=== PATIENT | male | born 1945 | race Caucasian/White ===

== ENCOUNTER 2019-10-29 14:53 | Emergency (ER) | payer MEDICARE ==
[~2019-10-29] VITALS: Ht 167.6 cm; Wt 81.8 kg
[~2019-10-29 14:53] MED LIST: ALFU10TA PO; ASPI81TA52 PO; ATOR40TA PO; OMEP20TA5 PO
--- NOTE | 2019-10-29 15:20 | NUR ---
LEVEL 3 TRAUMA ALERT ACTIVATED.
--- NOTE | 2019-10-29 15:24 | NUR ---
DR. BELTRÁN AT BEDSIDE.
[2019-10-29] MEDS ORDERED: iohexol 300mg/ml 100ml inj. ONE (15:30)
[2019-10-29] MEDS ORDERED: iohexol 300 MG/1 ML 50ml polymer ONE (15:35)
--- NOTE | 2019-10-29 15:40 | NUR ---
PATIENT TO CT.
[2019-10-29 15:44] LABS: BASOPHILS # (AUTO) 0.1 X10'3 (0-0.2); BASOPHILS % (AUTO) 0.4 % (0-1); EOSINOPHILS # (AUTO) 0.1 X10'3 (0-0.9); EOSINOPHILS % (AUTO) 0.3 % (0-6); HEMATOCRIT 41.9 % (42.0-52.0); HEMOGLOBIN 14.5 g/dl (14.0-17.9); LYMPHOCYTES # (AUTO) 1.4 X10'3 (1.1-4.8); LYMPHOCYTES % (AUTO) 10.1 % (21-51); MEAN CORPUSCULAR HGB CONC 34.7 g/dL (33.0-36.5); MEAN CORPUSCULAR VOLUME 92.2 FL (78-98); MONOCYTES # (AUTO) 0.6 X10'3 (0-0.9); NEUTROPHILS # (AUTO) 12.2 X10'3 (1.8-7.7); NEUTROPHILS % (AUTO) 85.2 % (42-75); PLATELET COUNT 321 X10'3 (140-440); RED BLOOD COUNT 4.54 X10'6 (4.70-6.10); RED CELL DISTRIBUTION WIDTH 13.7 % (11.5-14.5); WHITE BLOOD COUNT 14.4 X10'3 (4.5-11.0)
[2019-10-29 15:59] LABS: PARTIAL THROMBOPLASTIN TIME 27 SECONDS (22-32)
[2019-10-29 16:00] LABS: ALANINE AMINOTRANSFERASE 24 U/L (12-78); ALBUMIN/GLOBULIN RATIO 1.3 (1.1-1.5); ALKALINE PHOSPHATASE 84 IU/L (46-116); ANION GAP 10 (8-16); ASPARTATE AMINO TRANSFERASE 20 U/L (10-37); BILIRUBIN,TOTAL 0.6 MG/DL (0.1-1.0); BLOOD UREA NITROGEN 17 MG/DL (7-18); BUN/CREATININE RATIO 13.1 (5.4-32.0); CHLORIDE 104 MMOL/L (99-107); GLUCOSE 115 MG/DL (70-104); POTASSIUM 3.9 MMOL/L (3.5-5.1); SODIUM 141 MMOL/L (135-145); TOTAL CARBON DIOXIDE 27.5 MMOL/L (24-32); TOTAL PROTEIN 7.1 G/DL (6.4-8.2); eGFR 54 ML/MIN
[2019-10-29 16:03] LABS: TROPONIN I < 0.04 NG/ML (0.0-0.05)
--- NOTE | 2019-10-29 16:12 | NUR ---
radiology at bedside.
[2019-10-29 16:27] VITALS: BP 135/84
== END 2019-10-29 17:00 | disposition home or self-care (01) ==
LOC: ER 14:53
DX: S13.4XXA Sprain of ligaments of cervical spine, initial encounter (principal); S50.02XA Contusion of left elbow, initial encounter; E78.00 Pure hypercholesterolemia, unspecified; G89.29 Other chronic pain; Z85.9 Personal history of malignant neoplasm, unspecified; Z98.890 Other specified postprocedural states; Z79.82 Long term (current) use of aspirin; Z79.899 Other long term (current) drug therapy; V89.2XXA Person injured in unspecified motor-vehicle accident, traffic, initial encounter; Y93.89 Activity, other specified; Y92.89 Other specified places as the place of occurrence of the external cause; Y99.8 Other external cause status
CPT/HCPCS: 36415; 70450; 70482; 71260; 72125; 73070; 73590; 74177; 80053; 84484; 85025; 85610; 85730; 93005; 99285; Q9967

== ENCOUNTER 2024-05-24 09:25 | Day surgery (SDC) | payer MEDICARE ==
[~2024-05-24] VITALS: Ht 170.2 cm; Wt 80.5 kg
[2024-05-24] VITALS (9 sets, daily range): BP systolic 100–146; BP diastolic 57–77; PULSE 65–74; RESP 16; TEMP 97.6; O2SAT 92–96
[~2024-05-24 09:25] MED LIST changes: +OMEP20TA43 PO; -OMEP20TA5 PO
[2024-05-24 10:21] LABS: ALBUMIN 4.2 G/DL (3.4-5.0); ANION GAP 5 (8-16); BASOPHILS # (AUTO) 0.1 X10'3 (0-0.2); BASOPHILS % (AUTO) 1.2 % (0-1); BLOOD UREA NITROGEN 15 MG/DL (7-18); BUN/CREATININE RATIO 15.2 (10.0-20.0); CALCIUM 8.8 MG/DL (8.5-10.1); CHLORIDE 105 MMOL/L (99-107); CREATININE 0.99 MG/DL (0.60-1.10); EOSINOPHILS # (AUTO) 0.1 X10'3 (0-0.9); EOSINOPHILS % (AUTO) 1.3 % (0-6); GLUCOSE 111 MG/DL (70-104); HEMATOCRIT 43.1 % (42.0-52.0); HEMOGLOBIN 14.9 g/dl (14.0-17.9); LYMPHOCYTES # (AUTO) 1.8 X10'3 (1.1-4.8); LYMPHOCYTES % (AUTO) 25.2 % (21-51); MAGNESIUM 2.1 MG/DL (1.5-2.4); MEAN CORPUSCULAR HEMOGLOBIN 32.6 PG (27.0-31.0); MEAN CORPUSCULAR HGB CONC 34.6 g/dL (33.0-36.5); MEAN CORPUSCULAR VOLUME 94.2 FL (78-98); MEAN PLATELET VOLUME 7.4 FL (7.4-10.4); MONOCYTES # (AUTO) 0.6 X10'3 (0-0.9); MONOCYTES % (AUTO) 8.3 % (2-12); NEUTROPHILS # (AUTO) 4.6 X10'3 (1.8-7.7); PLATELET COUNT 386 X10'3 (140-440); POTASSIUM 3.8 MMOL/L (3.5-5.1); RED BLOOD COUNT 4.57 X10'6 (4.70-6.10); SODIUM 142 MMOL/L (135-145); TOTAL CARBON DIOXIDE 31.6 MMOL/L (24-32); WHITE BLOOD COUNT 7.1 X10'3 (4.5-11.0); eCRCL 57 ML/MIN; eGFR 73 ML/MIN
[2024-05-24 10:48] LABS: PROTHROMBIN TIME 10.9 SECONDS (9.0-12.0)
[2024-05-24] MEDS ORDERED: LEVO137T2 PO (11:03)
[2024-05-24] MEDS ORDERED: ESOM20CA50 PO (11:03)
[2024-05-24] MEDS ORDERED: ATOR40TA72 PO (11:03)
[2024-05-24] MEDS ORDERED: ASPI-611 PO (11:03)
[2024-05-24] MEDS ORDERED: CIPR250T4 PO (11:03)
[2024-05-24] MEDS: sodium bicarbonate 1meq/ml syr 150 ML in dextrose 5%-water 1,000 ML IV ONE (11:21)
[2024-05-24] MEDS: normal saline 1,000 ML IV SCH (11:22)
[2024-05-24] MEDS: diphenhydrAMINE 25mg capsule PO PRN (11:28)
[2024-05-24] MEDS ORDERED: midazolam 1 mg/ML 2ml injection ONE ×2 (13:48→15:07)
[2024-05-24] MEDS ORDERED: verapamil 2.5 mg/ml inj IV ONE (13:48)
[2024-05-24] MEDS ORDERED: fentaNYL/PF 50MCG/1 ML 2ML syringe ONE (13:48)
[2024-05-24] MEDS ORDERED: heparin 1,000unit/ml 10ml vial 10 ML ONE (13:48)
[2024-05-24] MEDS ORDERED: LIDOcaine 1% (10mg/ml) 2ml vial ONE (13:48)
[2024-05-24] MEDS ORDERED: iohexol 350 MG/ML 50ML vial IV ONE (13:48)
[2024-05-24] MEDS ORDERED: iohexol 350MG/ML 100ml bottle IV ONE (13:49)
[2024-05-24] MEDS ORDERED: nitroGLYCERIN 500mcg/5mL D5W 5 ML IV ONE (13:49)
[2024-05-24] MEDS ORDERED: ondansetron/PF 4mg/2ml inj IV PRN (16:25)
[2024-05-24] MEDS ORDERED: HYDROcodone/acetaminophen 5mg/325mg tablet PO PRN (16:25)
[2024-05-24] MEDS ORDERED: proCHLORperazine 10 MG/2 ml inj IV PRN (16:25)
[2024-05-24] MEDS ORDERED: HYDROcodone/acetaminophen 10/325mg tab PO PRN (16:25)
== END 2024-05-24 18:40 | disposition home or self-care (01) ==
LOC: SSTAY O 09:25
PROVIDERS: ATTEND Internal Medicine Cardiovascular Disease
DX: R07.89 Other chest pain (principal); E03.9 Hypothyroidism, unspecified; E78.5 Hyperlipidemia, unspecified; I65.29 Occlusion and stenosis of unspecified carotid artery; G47.30 Sleep apnea, unspecified; F10.90 Alcohol use, unspecified, uncomplicated; Z85.46 Personal history of malignant neoplasm of prostate; Z90.89 Acquired absence of other organs; Z90.5 Acquired absence of kidney; Z87.891 Personal history of nicotine dependence; Z86.73 Personal history of transient ischemic attack (TIA), and cerebral infarction without residual deficits; Z98.890 Other specified postprocedural states; Z79.82 Long term (current) use of aspirin; Z79.890 Hormone replacement therapy; Z79.899 Other long term (current) drug therapy; Z80.3 Family history of malignant neoplasm of breast
CPT/HCPCS: 36415; 80048; 82948; 83735; 85025; 85610; 93005; 93458; 99152; A6258; A6402; C1894; J1644; J2003; J2250; J3010; J3490; J7030; J7070; Q0163; Q9967; 99153